=== PATIENT | female | born 1995 | race Two or more races ===

== ENCOUNTER 2017-04-13 07:59 | Emergency (ER) | payer MEDICAID ==
[~2017-04-13] VITALS: Ht 154.9 cm; Wt 53.5 kg
[~2017-04-13 07:59] MED LIST: PREN-96 PO
[2017-04-13 08:23] VITALS: BP 104/67
== END 2017-04-13 10:03 | disposition home or self-care (01) ==
LOC: ER 07:59
DX: J21.9 Acute bronchiolitis, unspecified (principal)
CPT/HCPCS: 71046

== ENCOUNTER 2017-11-23 13:50 | Emergency (ER) | payer MEDICAID ==
[~2017-11-23] VITALS: Ht 154.9 cm; Wt 56.2 kg
[2017-11-23 15:05] LABS: Basophils # (auto) 0 uL; Basophils % (auto) 0.4 % (0.0-2.0); Eosinophils # (auto) 0.1 uL; Eosinophils % (auto) 1.9 % (0.0-7.0); Hematocrit 38.2 % (36.0-46.0); Hemoglobin 13.1 g/dL (12.2-16.2); Mean Corpuscular Hemoglobin 31.5 pg (28.0-32.0); Mean Corpuscular Hgb Conc. 34.3 g/dL (32.0-36.0); Mean Corpuscular Volume 91.7 fL (80.0-100.0); Monocytes # (auto) 0.4 uL; Monocytes % (auto) 7.9 % (0.0-12.0); Neutrophils % (auto) 53.8 % (37.0-80.0); Nucleated Red Blood Cells % 0.2 %; Platelet Count (auto) 263 10^3/uL (140-450); Red Blood Cells 4.17 10^6/uL (4.0-5.20); Red Cell Distribution Width 13.3 % (11.8-14.3); White Blood Cell 5.6 10^3/uL (4.4-10.8)
[2017-11-23 15:33] LABS: Alanine Aminotransferase 18 U/L (13-56); Alkaline Phosphatase 68 U/L (45-117); Anion Gap 9 (5-15); Aspartate Aminotransferase 12 U/L (15-37); BUN/Creatinine Ratio 23.7; Bilirubin, Total 0.6 mg/dL (0.2-1.0); Blood Urea Nitrogen 14 mg/dL (7-18); Calcium 8.5 mg/dL (8.5-10.1); Carbon Dioxide 26 mmol/L (21-32); Chloride 108 mmol/L (98-107); GFR African American 169 mL/min; GFR Non-African American 140 mL/min; Glucose 79 mg/dL (74-106); Potassium 3.7 mmol/L (3.5-5.1); Sodium 143 mmol/L (136-145); Total Protein 7.6 g/dL (6.4-8.2)
[2017-11-23 16:52] VITALS: BP 109/72
== END 2017-11-23 16:56 | disposition home or self-care (01) ==
LOC: ER 13:50
DX: M94.0 Chondrocostal junction syndrome [Tietze] (principal); R07.81 Pleurodynia
CPT/HCPCS: 36415; 71046; 80053; 81025; 84484; 85025; 93005

== ENCOUNTER 2021-05-13 14:01 | Emergency (ER) | payer MEDICAID ==
[~2021-05-13] VITALS: Ht 157.5 cm; Wt 65.8 kg
[2021-05-13 17:10] VITALS: BP 103/66
== END 2021-05-13 17:10 | disposition home or self-care (01) ==
LOC: ER 14:01
DX: J20.9 Acute bronchitis, unspecified (principal); Z20.822 Contact with and (suspected) exposure to COVID-19
CPT/HCPCS: 36415; 87426

== ENCOUNTER → 2021-05-22 | Emergency (ER) | payer MEDICAID ==
[~2021-05-22] VITALS: Ht 157.5 cm; Wt 64.9 kg
[~2021-05-22] MED LIST changes: +ACETAMINOPHEN 325 MG TAB PO ONE; +SODIUM CHLORIDE 0.9% 500 ML IV ONE
[2021-05-22 13:26] LABS: Basophils # (auto) 0 10 ^3/uL (0-0.2); Basophils % (auto) 0.3 % (0.0-2.0); Eosinophils # (auto) 0.1 10 ^3/uL (0-0.8); Eosinophils % (auto) 1.3 % (0.0-7.0); Hematocrit 35.7 % (36.0-46.0); Hemoglobin 12.1 g/dL (12.2-16.2); Lymphocytes # (auto) 2.6 10 ^3/uL (0.4-5.4); Lymphocytes % (auto) 23.9 % (10.0-50.0); Mean Corpuscular Hgb Conc. 33.8 g/dL (32.0-36.0); Mean Corpuscular Volume 88.5 fL (80.0-100.0); Monocytes # (auto) 0.9 10 ^3/uL (0-1.3); Monocytes % (auto) 8.2 % (0.0-12.0); Neutrophils # (auto) 7.3 10 ^3/uL (1.6-8.6); Neutrophils % (auto) 66.3 % (37.0-80.0); Nucleated Red Blood Cells % 0.1 %; Red Blood Cells 4.03 10^6/uL (4.0-5.20); Red Cell Distribution Width 13.4 % (11.8-14.3)
[2021-05-22 13:46] LABS: Albumin 3.5 g/dL (3.4-5.0); Potassium 3.7 mmol/L (3.5-5.1)
[2021-05-22 13:53] LABS: Bilirubin, Total 0.1 mg/dL (0.2-1.0); Total Protein 7.4 g/dL (6.4-8.2)
[2021-05-22 14:06] LABS: Urine Bacteria FEW /hpf (None Seen); Urine Blood Negative /uL (Negative); Urine Mucus FEW (None Seen); Urine WBC <1 /hpf (0 - 5)
[2021-05-22 17:49] VITALS: BP 93/45
== END | disposition home or self-care (01) ==
LOC: ER 12:26
DX: O26.891 Other specified pregnancy related conditions, first trimester (principal); R51.9 Headache, unspecified; Z3A.12 12 weeks gestation of pregnancy
CPT/HCPCS: 36415; 76801; 80053; 81001; 83690; 84484; 84702; 85025; 93005; 96360; 99285; J7040

== ENCOUNTER 2021-09-15 10:02 | Observation (INO) | payer MEDICAID ==
[~2021-09-15] VITALS: Ht 165.1 cm; Wt 74.8 kg
[~2021-09-15 10:02] MED LIST changes: -ACETAMINOPHEN 325 MG TAB PO ONE; -SODIUM CHLORIDE 0.9% 500 ML IV ONE
[2021-09-15] MEDS ORDERED: LACTATED RINGER'S 1,000 ML IV ONE (11:15)
[2021-09-15] MEDS ORDERED: ACETAMINOPHEN 325 MG TAB PO ONE (11:45)
[2021-09-15] MEDS ORDERED: ONDANSETRON ODT 4 MG TAB PO ONE (12:00)
== END 2021-09-15 12:54 | disposition home or self-care (01) ==
LOC: UNDOADMOB 10:02 → LDRP 10:02 → UNDODISOB 12:54
PROVIDERS: ADMIT Obstetrics & Gynecology Obstetrics; ATTEND Obstetrics & Gynecology Obstetrics
DX: O26.893 Other specified pregnancy related conditions, third trimester (principal); R20.0 Anesthesia of skin; R68.2 Dry mouth, unspecified; Z3A.29 29 weeks gestation of pregnancy
CPT/HCPCS: 59025; 81002; 82962; 94760; 96360; G0378

== ENCOUNTER 2021-09-30 10:51 | Observation (INO) | payer MEDICAID | END 2021-09-30 13:29 | disposition home or self-care (01) | LOC: UNDOADMOB 10:51 → LDRP 10:51 | PROVIDERS: ADMIT Obstetrics & Gynecology; ATTEND Obstetrics & Gynecology | DX: O60.03 Preterm labor without delivery, third trimester (principal); O24.419 Gestational diabetes mellitus in pregnancy, unspecified control; Z3A.31 31 weeks gestation of pregnancy | CPT/HCPCS: 59025; 81002; 82948; 82962; 94760; G0378 ==

== ENCOUNTER 2021-10-07 07:39 | Observation (INO) | payer MEDICAID | END 2021-10-07 09:14 | disposition home or self-care (01) | LOC: LDRP 08:00 → UNDOADMOB 08:00 → LDRP 08:22 → UNDODISOB 09:14 | PROVIDERS: ADMIT Obstetrics & Gynecology; ATTEND Obstetrics & Gynecology | DX: O24.419 Gestational diabetes mellitus in pregnancy, unspecified control (principal); O60.03 Preterm labor without delivery, third trimester; Z3A.32 32 weeks gestation of pregnancy | CPT/HCPCS: 59025; 76818; 81002; 82948; 82962; 94760; G0378 ==

== ENCOUNTER 2021-10-15 08:08 | Observation (INO) | payer MEDICAID ==
[~2021-10-15] VITALS: Ht 154.9 cm; Wt 73.9 kg
[2021-10-15] MEDS ORDERED: TERBUTALINE SULFATE 1 MG/ML 1ML VIAL SC ONE (09:15)
[2021-10-15] MEDS ORDERED: LACTATED RINGER'S 1,000 ML IV ONE (09:30)
[2021-10-15] MEDS: TERBUTALINE SULFATE 1 MG/ML 1ML VIAL SC SCH ×2 (09:56→10:25)
[2021-10-15] MEDS ORDERED: NIF10C PO (11:18)
== END 2021-10-15 11:33 | disposition home or self-care (01) ==
LOC: UNDOADMOB 08:08 → LDRP 08:08 → UNDODISOB 11:33
PROVIDERS: ADMIT Obstetrics & Gynecology; ATTEND Obstetrics & Gynecology
DX: O60.03 Preterm labor without delivery, third trimester (principal); O24.419 Gestational diabetes mellitus in pregnancy, unspecified control; Z3A.35 35 weeks gestation of pregnancy
CPT/HCPCS: 59025; 76818; 81002; 82948; 82962; 94760; 96360; 96372; G0378; J3105

== ENCOUNTER 2021-10-18 08:33 | Observation (INO) | payer MEDICAID ==
[~2021-10-18 08:33] MED LIST changes: +NIF10C PO
== END 2021-10-18 11:45 | disposition home or self-care (01) ==
LOC: LDRP 08:33
PROVIDERS: ADMIT Obstetrics & Gynecology Obstetrics; ATTEND Obstetrics & Gynecology Obstetrics
DX: O60.03 Preterm labor without delivery, third trimester (principal); O24.419 Gestational diabetes mellitus in pregnancy, unspecified control; Z3A.33 33 weeks gestation of pregnancy; Z79.899 Other long term (current) drug therapy
CPT/HCPCS: 59025; 76818; 82962; 94760; G0378

== ENCOUNTER 2021-10-22 07:14 | Observation (INO) | payer MEDICAID ==
[~2021-10-22] VITALS: Ht 154.9 cm; Wt 74.8 kg
== END 2021-10-22 09:31 | disposition home or self-care (01) ==
LOC: LDRP 08:09 → UNDOADMOB 08:10 → LDRP 08:10 → UNDODISOB 09:31
PROVIDERS: ADMIT Obstetrics & Gynecology; ATTEND Obstetrics & Gynecology
DX: O24.419 Gestational diabetes mellitus in pregnancy, unspecified control (principal); O60.03 Preterm labor without delivery, third trimester; O26.893 Other specified pregnancy related conditions, third trimester; N89.8 Other specified noninflammatory disorders of vagina; Z3A.34 34 weeks gestation of pregnancy; Z79.899 Other long term (current) drug therapy
CPT/HCPCS: 59025; 76818; 81002; 82948; 82962; 94760; G0378

== ENCOUNTER → 2021-10-28 | Outpatient (CLI) | payer MEDICAID ==
[2021-10-28 10:32] LABS: Basophils # (auto) 0.1 10 ^3/uL (0-0.2); Basophils % (auto) 0.7 % (0.0-2.0); Eosinophils # (auto) 0.2 10 ^3/uL (0-0.8); Eosinophils % (auto) 2.2 % (0.0-7.0); Hematocrit 34.8 % (36.0-46.0); Hemoglobin 11.8 g/dL (12.2-16.2); Lymphocytes # (auto) 2.1 10 ^3/uL (0.4-5.4); Lymphocytes % (auto) 29.4 % (10.0-50.0); Mean Corpuscular Hemoglobin 29.1 pg (28.0-32.0); Mean Corpuscular Hgb Conc. 33.8 g/dL (32.0-36.0); Monocytes # (auto) 0.9 10 ^3/uL (0-1.3); Monocytes % (auto) 12.5 % (0.0-12.0); Neutrophils # (auto) 3.9 10 ^3/uL (1.6-8.6); Neutrophils % (auto) 55.2 % (37.0-80.0); Nucleated Red Blood Cells % 0.1 %; Red Blood Cells 4.05 10^6/uL (4.0-5.20); Red Cell Distribution Width 13.8 % (11.8-14.3); White Blood Cell 7.1 10^3/uL (4.4-10.8)
[2021-10-29 08:06] LABS: RPR Non Reactive (Non Reactive)
== END | disposition home or self-care (01) ==
LOC: LAB 09:39
PROVIDERS: ATTEND Obstetrics & Gynecology
DX: Z34.80 Encounter for supervision of other normal pregnancy, unspecified trimester (principal)
CPT/HCPCS: 36415; 84112; 85025; 86592

== ENCOUNTER 2021-10-29 08:20 | Observation (INO) | payer MEDICAID | END 2021-10-29 10:00 | disposition home or self-care (01) | LOC: LDRP 08:20 → UNDOADMOB 08:20 → LDRP 09:22 → UNDODISOB 10:00 | PROVIDERS: ADMIT Obstetrics & Gynecology; ATTEND Obstetrics & Gynecology | DX: O24.419 Gestational diabetes mellitus in pregnancy, unspecified control (principal); O60.03 Preterm labor without delivery, third trimester; Z3A.35 35 weeks gestation of pregnancy | CPT/HCPCS: 76818; 82962; G0378; 59025; 81002; 82948; 94760 ==

== ENCOUNTER 2021-11-05 08:00 | Observation (INO) | payer MEDICAID | END 2021-11-05 09:15 | disposition home or self-care (01) | LOC: LDRP 08:00 | PROVIDERS: ADMIT Obstetrics & Gynecology; ATTEND Obstetrics & Gynecology | DX: O24.419 Gestational diabetes mellitus in pregnancy, unspecified control (principal); O60.03 Preterm labor without delivery, third trimester; Z3A.36 36 weeks gestation of pregnancy | CPT/HCPCS: 59025; 76818; 82948; 82962; 94760; G0378 ==

== ENCOUNTER 2021-11-12 08:00 | Observation (INO) | payer MEDICAID | END 2021-11-12 09:29 | disposition home or self-care (01) | LOC: LDRP 08:00 → UNDOADMOB 08:00 → LDRP 08:11 → UNDODISOB 09:29 | PROVIDERS: ADMIT Obstetrics & Gynecology; ATTEND Obstetrics & Gynecology | DX: O24.419 Gestational diabetes mellitus in pregnancy, unspecified control (principal); O60.03 Preterm labor without delivery, third trimester; O26.893 Other specified pregnancy related conditions, third trimester; N89.8 Other specified noninflammatory disorders of vagina; O21.2 Late vomiting of pregnancy; Z3A.37 37 weeks gestation of pregnancy | CPT/HCPCS: 59025; 76818; 81002; 82948; 82962; 94760; G0378 ==

== ENCOUNTER 2021-11-18 14:33 | Observation (INO) | payer MEDICAID | END 2021-11-19 09:51 | disposition home or self-care (01) | LOC: UNDOADMOB 11-19 08:17 → LDRP 11-19 08:17 → UNDODISOB 11-19 09:51 | PROVIDERS: ADMIT Obstetrics & Gynecology; ATTEND Obstetrics & Gynecology | DX: O24.419 Gestational diabetes mellitus in pregnancy, unspecified control (principal); O60.03 Preterm labor without delivery, third trimester; O99.891 Other specified diseases and conditions complicating pregnancy; M54.9 Dorsalgia, unspecified; O62.9 Abnormality of forces of labor, unspecified; Z3A.38 38 weeks gestation of pregnancy | CPT/HCPCS: 59025; 76818; 81002; 82948; 82962; 94760; G0378 ==

== ENCOUNTER 2022-07-13 01:13 | Emergency (ER) | payer MEDICAID ==
[~2022-07-13] VITALS: Ht 157.5 cm; Wt 68.0 kg
[~2022-07-13 01:13] MED LIST changes: -NIF10C PO
[2022-07-13] MEDS ORDERED: LORazepam 2MG/ML-1ML VIAL IV ONE (01:30)
[2022-07-13 01:35] VITALS: BP 128/76
[2022-07-13 01:42] LABS: Basophils # (auto) 0 10 ^3/uL (0-0.2); Basophils % (auto) 0.5 % (0.0-2.0); Eosinophils # (auto) 0.3 10 ^3/uL (0-0.8); Eosinophils % (auto) 3.3 % (0.0-7.0); Hemoglobin 13.1 g/dL (12.2-16.2); Lymphocytes # (auto) 4.2 10 ^3/uL (0.4-5.4); Lymphocytes % (auto) 48.9 % (10.0-50.0); Mean Corpuscular Hemoglobin 30.6 pg (28.0-32.0); Mean Corpuscular Hgb Conc. 33.7 g/dL (32.0-36.0); Mean Corpuscular Volume 90.7 fL (80.0-100.0); Monocytes # (auto) 0.9 10 ^3/uL (0-1.3); Monocytes % (auto) 10.7 % (0.0-12.0); Neutrophils # (auto) 3.2 10 ^3/uL (1.6-8.6); Neutrophils % (auto) 36.6 % (37.0-80.0); Red Cell Distribution Width 14.2 % (11.8-14.3); White Blood Cell 8.7 10^3/uL (4.4-10.8)
[2022-07-13 01:58] LABS: INR 1.01 (0.9-1.15)
[2022-07-13 02:01] LABS: Albumin 3.8 g/dL (3.4-5.0); BUN/Creatinine Ratio 17.5 (10.0-20.0); Calcium 8.2 mg/dL (8.5-10.1); Magnesium 2.1 mg/dL (1.6-2.6); Potassium 4.1 mmol/L (3.5-5.1)
[2022-07-13 02:04] LABS: Bilirubin, Total 0.2 mg/dL (0.2-1.0); Total Protein 7.7 g/dL (6.4-8.2)
[2022-07-13] MEDS ORDERED: HYDR-3682 PO (03:14)
== END 2022-07-13 05:15 | disposition home or self-care (01) ==
LOC: ER 01:13 → EDBD 01:13 → ER 05:15
DX: F41.9 Anxiety disorder, unspecified (principal); R07.89 Other chest pain; R06.4 Hyperventilation
CPT/HCPCS: 36415; 71045; 80053; 83735; 83880; 84484; 85025; 85610; 85730; 93005; 96374; 99285; J2060; J7030

== ENCOUNTER 2023-10-10 03:11 | Emergency (ER) | payer MEDICAID ==
[~2023-10-10] VITALS: Ht 154.9 cm; Wt 70.0 kg
[~2023-10-10 03:11] MED LIST changes: +HYDR-3682 PO
[2023-10-10 03:20] VITALS: BP 107/74; PULSE 84; RESP 22; O2SAT 100
[2023-10-10 03:43] LABS: Basophils # (auto) 0.1 10 ^3/uL (0-0.2); Basophils % (auto) 0.5 % (0.0-2.0); Eosinophils # (auto) 0.2 10 ^3/uL (0-0.8); Eosinophils % (auto) 1.8 % (0.0-7.0); Hematocrit 41.2 % (36.0-46.0); Hemoglobin 13.8 g/dL (12.2-16.2); Lymphocytes % (auto) 24.6 % (10.0-50.0); Mean Corpuscular Hemoglobin 30.3 pg (28.0-32.0); Mean Corpuscular Hgb Conc. 33.5 g/dL (32.0-36.0); Mean Corpuscular Volume 90.2 fL (80.0-100.0); Monocytes # (auto) 0.8 10 ^3/uL (0-1.3); Monocytes % (auto) 6.5 % (0.0-12.0); Neutrophils # (auto) 8.2 10 ^3/uL (1.6-8.6); Neutrophils % (auto) 66.6 % (37.0-80.0); Red Blood Cells 4.57 10^6/uL (4.0-5.20); Red Cell Distribution Width 13.4 % (11.8-14.3); White Blood Cell 12.3 10^3/uL (4.4-10.8)
[2023-10-10 04:01] LABS: Alanine Aminotransferase 22 U/L (7-40); Albumin 4.6 g/dL (3.2-4.8); Alkaline Phosphatase 77 U/L (46-116); Anion Gap 6 (5-15); Aspartate Aminotransferase 12 U/L (13-40); BUN/Creatinine Ratio 18.8 (10.0-20.0); Blood Urea Nitrogen 12 mg/dL (9-23); Calcium 9.9 mg/dL (8.7-10.4); Carbon Dioxide 25 mmol/L (20-30); Chloride 109 mmol/L (98-107); Glucose 104 mg/dL (74-106); Magnesium 1.8 mg/dL (1.6-2.6); Potassium 3.8 mmol/L (3.5-5.1); Sodium 140 mmol/L (136-145)
[2023-10-10 04:02] LABS: Bilirubin, Total 0.3 mg/dL (0.2-1.0); Total Protein 7.2 g/dL (5.7-8.2)
== END 2023-10-10 07:35 | disposition left against medical advice (07) ==
LOC: ER 03:11 → EDBD 03:11 → EDUNIT# 03:11 → ER 07:35
DX: R07.9 Chest pain, unspecified (principal); R10.2 Pelvic and perineal pain; Z53.21 Procedure and treatment not carried out due to patient leaving prior to being seen by health care provider
CPT/HCPCS: 36415; 80053; 83735; 84484; 84702; 85025; 93005